=== PATIENT | male | born 1970 ===

== ENCOUNTER 2018-03-17 16:56 | Inpatient (IN) | payer MEDICAID, OTHER ==
[~2018-03-17] VITALS: Ht 190.5 cm; Wt 187.6 kg
--- NOTE | 2018-03-17 17:14 | NUR ---
DR PENALOZA BS FOR EXAM. PT REPORTS HE VOMITED AFTER EATING TACO CHAVIS TODAY. DENIES CP.
--- NOTE | 2018-03-17 17:17 | NUR ---
PT STATES DRAIN TUBES WERE REMOVED TODAY. PER DR PENALOZA, SUTURES INTACT, NO DRAINAGE.
[2018-03-17] MEDS ORDERED: SODIUM CHLORIDE FLUSH 10ML SYR IVF ONE (17:30)
[2018-03-17 17:40] LABS: BASOPHILS # (AUTO) 0.03 x10^3/uL (0-0.1); BASOPHILS % (AUTO) 0 % (0-1); EOSINOPHILS # (AUTO) 0.05 x10^3/uL (0-0.4); EOSINOPHILS % (AUTO) 0 % (1-7); LYMPHOCYTES # (AUTO) 0.98 x10^3/uL (1-3.4); LYMPHOCYTES % (AUTO) 6 % (22-44); MD NO; MEAN CORPUSCULAR HEMOGLOBIN 32.3 pg (27.5-34.5); MEAN CORPUSCULAR HGB CONC 33.9 g/dL (33.2-36.2); MEAN CORPUSCULAR VOLUME 95.3 fL (81-97); MEAN PLATELET VOLUME 7.7 fL (7.4-10.4); MONOCYTES # (AUTO) 1.04 x10^3/uL (0.2-0.8); MONOCYTES % (AUTO) 7 % (2-9); NEUTROPHILS # (AUTO) 13.61 x10^3/uL (1.8-6.8); NEUTROPHILS % (AUTO) 87 % (42-75); PLATELET COUNT 194 x10^3/uL (130-400); RED BLOOD COUNT 4.46 x10^6/uL (4.38-5.82); RED CELL DISTRIBUTION WIDTH 13.9 % (9.4-14.8)
[2018-03-17 17:48] LABS: ALBUMIN 3.6 g/dL (3.4-5.0); ANION GAP 7 mmol/L (5-15); CALCIUM 8.7 mg/dL (8.5-10.1); CHLORIDE 100 mmol/L (98-107); CREATININE 1.91 mg/dL (0.7-1.3)
--- NOTE | 2018-03-17 17:50 | NUR ---
PT REPORT TO AZUL PICKARD RN. PT CARE TRANSFERRED.
[2018-03-17 17:51] LABS: TROPONIN I 0.089 ng/mL (0.000-0.045)
--- NOTE | 2018-03-17 18:34 | NUR ---
PT REPORT TO AZUL PICKARD RN. PT CARE TRANSFERRED. PT RESTING QUIETLY, AWAITING VQ SCAN.
--- NOTE | 2018-03-17 18:40 | NUR ---
02 SAT 91% 2LNC. O2 INCREASED TO 3LNC.
[2018-03-17] MEDS ORDERED: MORPHINE SULFATE 4 MG/ML, 1ML IVPush PRN (19:00)
[2018-03-17] MEDS ORDERED: ONDANSETRON 2MG/ML, 2ML IVPush ONE (19:00)
[2018-03-17] MEDS ORDERED: ONDANSETRON 2MG/ML, 2ML ONE (19:08)
[2018-03-17] MEDS ORDERED: MORPHINE SULFATE 4 MG/ML, 1ML ONE (19:09)
--- NOTE | 2018-03-17 19:16 | NUR ---
ZOFRAN & MORPHINE GIVEN PER EMAR. PT TO VQ SCAN PER KERRI
[2018-03-17] MEDS ORDERED: SPIRONOLACTONE (19:21)
[2018-03-17] MEDS ORDERED: METFORMIN (19:21)
[2018-03-17] MEDS ORDERED: METOPROLOL (19:21)
[2018-03-17] MEDS ORDERED: LISINOPRIL (19:21)
[2018-03-17] MEDS ORDERED: OXYCOTIN (19:21)
[2018-03-17] MEDS ORDERED: LASIX (19:21)
[2018-03-17] MEDS ORDERED: XARELTO (19:21)
[2018-03-17] MEDS ORDERED: SODIUM CHLORIDE 0.9% 1,000ML IVBOLUS ONE (19:30)
--- NOTE | 2018-03-17 19:49 | NUR ---
NS BOLUS STARTED. IV SITE PATENT. MONITORING EQUPIMENT RE-APPLIED TO PT.
--- NOTE | 2018-03-17 20:34 | NUR ---
PT REPORT TO JR KANG FOR ROOM 505 Addendum: 03/17/18 at 4 by BRUCE PER JORGE LUIS, BARIATRIC BED IS NOT IN ROOM, YET. UNIT WILL CALL WHEN BED READY.
[2018-03-17 20:59] VITALS: BP 103/67
[2018-03-17] MEDS ORDERED: ONDANSETRON 2MG/ML, 2ML IVPush PRN (21:00)
[2018-03-17] MEDS: LACTATED RINGERS 1,000 ML IV SCH (23:15)
[2018-03-18 00:22] LABS: MICROSCOPIC NOT IND
[2018-03-18 00:30] LABS: CULTURE INDICATED? NO
[2018-03-18] MEDS: ACETAMINOPHEN 325 MG TABLET PO PRN ×3 (00:39→22:51)
[2018-03-18 02:10] VITALS: BP 102/61
[2018-03-18 02:16] LABS: BASOPHILS # (AUTO) 0.03 x10^3/uL (0-0.1); BASOPHILS % (AUTO) 0 % (0-1); EOSINOPHILS # (AUTO) 0.15 x10^3/uL (0-0.4); EOSINOPHILS % (AUTO) 1 % (1-7); LYMPHOCYTES # (AUTO) 1.09 x10^3/uL (1-3.4); LYMPHOCYTES % (AUTO) 9 % (22-44); MD NO; MEAN CORPUSCULAR HEMOGLOBIN 31.7 pg (27.5-34.5); MEAN CORPUSCULAR HGB CONC 32.5 g/dL (33.2-36.2); MEAN CORPUSCULAR VOLUME 97.6 fL (81-97); MEAN PLATELET VOLUME 7.8 fL (7.4-10.4); MONOCYTES # (AUTO) 0.95 x10^3/uL (0.2-0.8); MONOCYTES % (AUTO) 7 % (2-9); NEUTROPHILS # (AUTO) 10.67 x10^3/uL (1.8-6.8); NEUTROPHILS % (AUTO) 83 % (42-75); PLATELET COUNT 167 x10^3/uL (130-400); RED BLOOD COUNT 4.23 x10^6/uL (4.38-5.82); RED CELL DISTRIBUTION WIDTH 14.5 % (9.4-14.8)
[2018-03-18 02:25] LABS: ANION GAP 5 mmol/L (5-15); CALCIUM 8.1 mg/dL (8.5-10.1); CHLORIDE 104 mmol/L (98-107); CREATININE 1.47 mg/dL (0.7-1.3)
[2018-03-18 03:15] LABS: TROPONIN I 0.082 ng/mL (0.000-0.045)
[2018-03-18] MEDS: SENNA/DOCUSATE TABLET PO SCH (10:05)
[2018-03-18 10:06] VITALS: BP 121/77
[2018-03-18 16:14] LABS: ALBUMIN 3.2 g/dL (3.4-5.0); ANION GAP 5 mmol/L (5-15); CALCIUM 8.4 mg/dL (8.5-10.1); CHLORIDE 105 mmol/L (98-107); CREATININE 1.05 mg/dL (0.7-1.3)
[2018-03-18 16:37] VITALS: BP 119/72
[2018-03-18] MEDS: LACTATED RINGERS 1,000 ML IV SCH (16:41)
[2018-03-18] MEDS ORDERED: RIVAROXABAN 15 MG TABLET PO SCH (17:00)
[2018-03-18 19:00] VITALS: BP 125/55
[2018-03-18] MEDS ORDERED: CETIRIZINE 10 MG TABLET PO PRN (20:30)
[2018-03-19 02:36] VITALS: BP 122/71
[2018-03-19] MEDS: LACTATED RINGERS 1,000 ML IV SCH (04:41)
[2018-03-19] MEDS ORDERED: SODIUM CHLORIDE NASAL SPRAY 45ML BOTTLE NAS PRN (05:00)
[2018-03-19] MEDS: SENNA/DOCUSATE TABLET PO SCH (08:10)
[2018-03-19 08:19] LABS: ALBUMIN 3.2 g/dL (3.4-5.0); ANION GAP 3 mmol/L (5-15); CALCIUM 8.8 mg/dL (8.5-10.1); CHLORIDE 105 mmol/L (98-107); CREATININE 0.87 mg/dL (0.7-1.3)
[2018-03-19 08:20] LABS: BASOPHILS # (AUTO) 0.01 x10^3/uL (0-0.1); BASOPHILS % (AUTO) 0 % (0-1); EOSINOPHILS # (AUTO) 0.18 x10^3/uL (0-0.4); EOSINOPHILS % (AUTO) 2 % (1-7); LYMPHOCYTES # (AUTO) 0.99 x10^3/uL (1-3.4); LYMPHOCYTES % (AUTO) 11 % (22-44); MD NO; MEAN CORPUSCULAR HEMOGLOBIN 31.7 pg (27.5-34.5); MEAN CORPUSCULAR HGB CONC 32.9 g/dL (33.2-36.2); MEAN CORPUSCULAR VOLUME 96.5 fL (81-97); MEAN PLATELET VOLUME 7.6 fL (7.4-10.4); MONOCYTES # (AUTO) 0.81 x10^3/uL (0.2-0.8); MONOCYTES % (AUTO) 9 % (2-9); NEUTROPHILS # (AUTO) 6.98 x10^3/uL (1.8-6.8); NEUTROPHILS % (AUTO) 78 % (42-75); PLATELET COUNT 172 x10^3/uL (130-400); RED CELL DISTRIBUTION WIDTH 13.9 % (9.4-14.8)
[2018-03-19 08:28] VITALS: BP 117/74
[2018-03-19 13:15] VITALS: BP 137/73
[2018-03-19] MEDS: RIVAROXABAN 20 MG TABLET PO SCH (17:51)
[2018-03-19 19:14] VITALS: BP 142/80
[2018-03-20 01:59] VITALS: BP 122/73
[2018-03-20] MEDS: ACETAMINOPHEN 325 MG TABLET PO PRN (02:15)
[2018-03-20 05:57] LABS: BASOPHILS # (AUTO) 0.04 x10^3/uL (0-0.1); BASOPHILS % (AUTO) 1 % (0-1); EOSINOPHILS # (AUTO) 0.27 x10^3/uL (0-0.4); EOSINOPHILS % (AUTO) 3 % (1-7); LYMPHOCYTES # (AUTO) 1.04 x10^3/uL (1-3.4); LYMPHOCYTES % (AUTO) 13 % (22-44); MD NO; MEAN CORPUSCULAR HEMOGLOBIN 32.1 pg (27.5-34.5); MEAN CORPUSCULAR HGB CONC 33.3 g/dL (33.2-36.2); MEAN CORPUSCULAR VOLUME 96.5 fL (81-97); MEAN PLATELET VOLUME 7.7 fL (7.4-10.4); MONOCYTES # (AUTO) 0.67 x10^3/uL (0.2-0.8); MONOCYTES % (AUTO) 8 % (2-9); NEUTROPHILS % (AUTO) 76 % (42-75); PLATELET COUNT 189 x10^3/uL (130-400); RED CELL DISTRIBUTION WIDTH 13.8 % (9.4-14.8)
[2018-03-20 06:05] LABS: ALBUMIN 3.2 g/dL (3.4-5.0); ANION GAP 7 mmol/L (5-15); CALCIUM 8.8 mg/dL (8.5-10.1); CHLORIDE 103 mmol/L (98-107)
[2018-03-20 06:08] LABS: ALANINE AMINOTRANSFERASE 31 U/L (12-78); ALKALINE PHOSPHATASE 66 U/L (45-117); BILIRUBIN,TOTAL 1.1 mg/dL (0.2-1.0); CREATININE 0.89 mg/dL (0.7-1.3)
[2018-03-20 07:40] VITALS: BP 135/79
[2018-03-20] MEDS: SENNA/DOCUSATE TABLET PO SCH (08:10)
[2018-03-20 13:24] VITALS: BP 132/85
[2018-03-20] MEDS ORDERED: RIVA20TA PO (14:14)
[2018-03-20 14:32] VITALS: BP 146/65
[2018-03-20] MEDS: RIVAROXABAN 20 MG TABLET PO SCH (17:31)
== END 2018-03-20 18:38 | disposition home or self-care (01) | DRG 682 ==
LOC: ED 20:05 → EDIP 20:10 → 5SO 21:51 → 4WST 03-19 22:40
PROVIDERS: ADMIT Internal Medicine; ATTEND Internal Medicine
DX: N17.0 Acute kidney failure with tubular necrosis (principal); J96.01 Acute respiratory failure with hypoxia; I50.30 Unspecified diastolic (congestive) heart failure; D68.69 Other thrombophilia; I11.0 Hypertensive heart disease with heart failure; Z91.018 Allergy to other foods; E11.65 Type 2 diabetes mellitus with hyperglycemia; E86.0 Dehydration; E86.1 Hypovolemia; F12.90 Cannabis use, unspecified, uncomplicated; G47.33 Obstructive sleep apnea (adult) (pediatric); I48.0 Paroxysmal atrial fibrillation; K59.00 Constipation, unspecified; Z79.01 Long term (current) use of anticoagulants; Z80.8 Family history of malignant neoplasm of other organs or systems; Z85.038 Personal history of other malignant neoplasm of large intestine; Z87.891 Personal history of nicotine dependence; Z90.49 Acquired absence of other specified parts of digestive tract; I95.9 Hypotension, unspecified; Z53.20 Procedure and treatment not carried out because of patient's decision for unspecified reasons
CPT/HCPCS: 36415; 36600; 71045; 78582; 80048; 80053; 80069; 81003; 82040; 82803; 83735; 83880; 84100; 84484; 85025; 93005; 96361; 96374; 96375; C8929; G0378; J2405; Q9957; A9540; A9558; J7030; J7120